=== PATIENT | female | born 1970 | race Caucasian/White ===

== ENCOUNTER 2018-04-15 19:00 | Emergency (ER) | payer BC ==
[2018-04-15 20:33] VITALS: BP 142/89
[2018-04-15] MEDS ORDERED: Albuterol HFA INHALER* 8 gm MDI INH ONE (20:44)
--- NOTE | 2018-04-15 20:44 | UC ---
Respiratory Complaint HPI - HPI Summary HPI Summary: Persistent cough x 2 wks ; worse at night. has post nasal drip . initially had a fever but not for one week. no smokers at home, does not smoke. - History of Current Complaint Chief Complaint: UCRespiratory Stated Complaint: COUGH Time Seen by Provider: 04/15/18 20:20 Hx Obtained From: Patient Hx Last Menstrual Period: 12/25/14 Onset/Duration: Gradual Onset Pain Intensity: 0 Pain Scale Used: 0-10 Numeric Character: Cough: Nonproductive Aggravating Factors: Nothing Alleviating Factors: Nothing Associated Signs And Symptoms: Negative: Wheezing - Allergies/Home Medications Allergies/Adverse Reactions: Allergies Allergy/AdvReac Type Severity Reaction Status Date / Time No Known Allergies Allergy Verified 01/01/15 08:10 PMH/Surg Hx/FS Hx/Imm Hx Previously Healthy: Yes - Surgical History Surgical History: Yes Surgery Procedure, Year, and Place: laproscopy - r/o endometriosis. LEEP - Social History Alcohol Use: Rare Substance Use Type: Marijuana Smoking Status (MU): Former Smoker - Immunization History Most Recent Influenza Vaccination: never Most Recent Tetanus Shot: 2005 Most Recent Pneumonia Vaccination: never Review of Systems All Other Systems Reviewed And Are Negative: Yes Constitutional: Positive: Negative Respiratory: Positive: Cough. Negative: Shortness Of Breath Cardiovascular: Positive: Negative Physical Exam Triage Information Reviewed: Yes Appearance: Well-Appearing Vital Signs: Initial Vital Signs Temp 98.5 F 04/15/18 20:31 Pulse 98 04/15/18 20:31 Resp 18 04/15/18 20:31 BP 142/89 04/15/18 20:31 Pulse Ox 98 04/15/18 20:31 Vital Signs Reviewed: Yes Eyes: Positive: Conjunctiva Clear ENT: Positive: Pharynx normal, TMs normal, Uvula midline. Negative: Sinus tenderness Neck exam: Normal Respiratory: Positive: No respiratory distress, No accessory muscle use, Rhonchi - faint, throughout Cardiovascular Exam: Normal Neurological: Positive: Alert Respiratory Course/Dx - Course Course Of Treatment: subacute bronchitis symptoms; likely viral. rx'd albuterol for now to help w/ air movement. pulse ox good, afebrile. advised to return if worsening or if fever returns. - Differential Dx/Diagnosis Differential Diagnosis/HQI/PQRI: Asthma, Bronchitis, Sinusitis Provider Diagnosis: Bronchitis Discharge - Sign-Out/Discharge Documenting (check all that apply): Patient Departure All imaging exams completed and their final reports reviewed: No Studies - Discharge Plan Condition: Good Disposition: HOME Patient Education Materials: Acute Bronchitis (ED) Referrals: No Primary Care Phys,NOPCP [Primary Care Provider] - Additional Instructions: if not improving please follow up with your primary care provider. - Billing Disposition and Condition Condition: GOOD Disposition: Home
== END 2018-04-15 21:00 | disposition home or self-care (01) ==
LOC: UCEAST 19:00
DX: J40 Bronchitis, not specified as acute or chronic (principal); Z87.891 Personal history of nicotine dependence
CPT/HCPCS: 99202; A9270-GY; G0463

== ENCOUNTER 2018-08-12 20:12 | Emergency (ER) | payer BC ==
--- NOTE | 2018-08-12 20:14 | UC ---
Lower Extremity/Ankle HPI - HPI Summary HPI Summary: 48 yo female presents with LEFT ankle injury. She tells me that about 30min [employer] she was walking her dog and stepped on a spot of uneven sidewalk and inverted her left ankle. Had immediate pain and swelling soon followed. She applied ice and came to . She denies numbness or tingling. - History of Current Complaint Stated Complaint: ANKLE INJURY Time Seen by Provider: 08/12/18 20:13 Hx Obtained From: Patient Hx Last Menstrual Period: 12/25/14 Onset/Duration: Sudden Onset Severity Initially: Moderate Severity Currently: Moderate Pain Intensity: 4 Pain Scale Used: 0-10 Numeric Aggravating Factor(s): Standing, Ambulation Alleviating Factor(s): Ice Able to Bear Weight: Yes - Allergies/Home Medications Allergies/Adverse Reactions: Allergies Allergy/AdvReac Type Severity Reaction Status Date / Time No Known Allergies Allergy Verified 08/12/18 20:21 PMH/Surg Hx/FS Hx/Imm Hx - Additional Past Medical History Additional PMH: Seasonal allergies - Surgical History Surgical History: Yes Surgery Procedure, Year, and Place: laproscopy - r/o endometriosis. LEEP - Family History Known Family History: Positive: None - Social History Occupation: Employed Full-time Lives: With Family Alcohol Use: Rare Substance Use Type: Marijuana Smoking Status (MU): Former Smoker - Immunization History Most Recent Influenza Vaccination: never Most Recent Tetanus Shot: 2005 Most Recent Pneumonia Vaccination: never Review of Systems All Other Systems Reviewed And Are Negative: Yes Constitutional: Positive: Negative Skin: Positive: Negative Respiratory: Positive: Negative Cardiovascular: Positive: Negative Neurovascular: Positive: Negative Musculoskeletal: Positive: Other: - Left ankle injury Neurological: Positive: Negative Psychological: Positive: Negative Physical Exam - Summary Physical Exam Summary: GENERAL: NAD. WDWN. No pain distress. SKIN: No rashes, sores, lesions, or open wounds. CHEST: No accessory muscle use. Breathing comfortably and in no distress. CV: Pulses intact PT and DP. Cap refill <2seconds MSK: LEFT ANKLE: Moderate edema along lateral malleolus with point tenderness at intermed/inferior malleolus. FROM, but pain with inversion. Mild degree of increase laxity during inversion. NEURO: Alert. Sensations intact and symmetric B/L LEs PSYCH: Age appropriate behavior. Triage Information Reviewed: Yes Vital Signs: Vital Signs: Temp Pulse Resp BP Pulse Ox 97.4 F 81 18 119/74 100 08/12/18 20:22 08/12/18 20:22 08/12/18 20:22 08/12/18 20:22 08/12/18 20:22 Vital Signs Reviewed: Yes Lower Extremity Course/Dx - Course Course Of Treatment: XR: wet read by myself is nondisplaced fracture at the inferior lateral malleolus. Discussed results with pt Pt was placed in a CAM boot and provided with crutches. Advised to RICE and use the boot as much as possible and crutches for comfort. May take tylenol/ibuprofen as directed for discomfort. Follow up with Orthopedics within 4-5 days for further evaluation. - Differential Dx/Diagnosis Provider Diagnosis: Closed left ankle fracture Discharge - Sign-Out/Discharge Documenting (check all that apply): Patient Departure All imaging exams completed and their final reports reviewed: No - Discharge Plan Condition: Stable Disposition: HOME Patient Education Materials: Ankle Fracture (DC) Referrals: No Primary Care Phys,NOPCP [Primary Care Provider] - Dar Lundbegr MD [Medical Doctor] - As Soon As Possible Additional Instructions: If you develop a fever, shortness of breath, chest pain, new or worsening symptoms - please call your PCP or go to the ED immediately. 1) Rest, Ice, and elevate your ankle intermittently throughout the day 2) Use the crutches and walking boot as much as possible until you are able to see Orthopedics 3) May take tylenol or ibuprofen as directed for discomfort - Billing Disposition and Condition Condition: STABLE Disposition: Home
[2018-08-12 20:25] VITALS: BP 119/74
--- NOTE | 2018-08-13 07:28 | UC ---
- Progress Note Progress Note: Patient Name: SHAWN BUTCHER Medical Record#: [id number] Ordering Physician: Van ELIZABETH Acct.#: [id number] : 1970 Age: 48 Sex: F Location: [facility] Exam Date: 08/12/182013 ADM Status: DEP ER Order Information: ANKLE LEFT 3+VWS Accession Number: [id number] CPT: 06524 INDICATION: Left ankle injury. TECHNIQUE: 3 views of the left ankle were obtained. FINDINGS: There is lateral soft tissue swelling. The bones are normal alignment. There is a transverse fracture of the distal portion of the lateral malleolus which is nondisplaced. In addition there appears to be a 3 mm bony fragment which projects between the talus and lateral malleolus on the oblique view. No additional fracture is seen. IMPRESSION: 1. TRANSVERSE NONDISPLACED FRACTURE OF THE LATERAL MALLEOLUS. 2. THERE IS AN ADDITIONAL SMALL FRACTURE FRAGMENT WHICH PROJECTS BETWEEN THE LATERAL MALLEOLUS AND TALUS ON ONE VIEW. R0 Preliminary Imaging Read R0 <Electronically signed by Wai Shearer MD in [place]> 08/13/18714 Dictated By: Wai Shearer MD Dictated Date/Time: 08/13/18714 Transcribed Date/Time: 08/13/18712 Copy to: CC:Rosemarie Freed MD; No Primary Care Phys,NOPCP ; Van ELIZABETH Imaging - [facility] Imaging - [facility] Imaging - [facility] [address] [address] ph ([phone]) ph ([phone]) ph ([phone]) This report is only to be considered final once signed by the Provider(s) as displayed in the "<Electronically Signed by >" field (s). Absence of a signature indicates the report is in a draft status and still needs to be finalized. In the event this document was created by someone other than the signing Provider, the individual initiating the document will be listed in the "Entered by:" or "Dictated by:" martínez. 1 of 1 Course/Dx - Diagnoses Provider Diagnoses: Closed left ankle fracture Discharge - Sign-Out/Discharge Documenting (check all that apply): Post-Discharge Follow Up All imaging exams completed and their final reports reviewed: Yes - Discharge Plan Condition: Stable Disposition: HOME Patient Education Materials: Ankle Fracture (DC) Referrals: Dar Lundberg MD [Medical Doctor] - As Soon As Possible No Primary Care Phys,NOPCP [Primary Care Provider] - Additional Instructions: If you develop a fever, shortness of breath, chest pain, new or worsening symptoms - please call your PCP or go to the ED immediately. 1) Rest, Ice, and elevate your ankle intermittently throughout the day 2) Use the crutches and walking boot as much as possible until you are able to see Orthopedics 3) May take tylenol or ibuprofen as directed for discomfort - Billing Disposition and Condition Condition: STABLE Disposition: Home
== END 2018-08-12 20:45 | disposition home or self-care (01) ==
LOC: UCEAST 20:12
DX: S82.65XA Nondisplaced fracture of lateral malleolus of left fibula, initial encounter for closed fracture (principal); X50.0XXA Overexertion from strenuous movement or load, initial encounter; Y93.K1 Activity, walking an animal; Y92.480 Sidewalk as the place of occurrence of the external cause; Y99.8 Other external cause status; Z87.891 Personal history of nicotine dependence
CPT/HCPCS: 99213; G0463